=== PATIENT | male | born 1955 | race Caucasian/White ===

== ENCOUNTER 2021-07-10 06:05 | Emergency (ER) | payer OTHER ==
[2021-07-10] MEDS ORDERED: EPINEPHrine 1 MG/ML SDV IM ONE (06:14)
[2021-07-10] MEDS ORDERED: Dexamethasone 4 MG/ML SDV IVPUSH ONE (06:14)
--- NOTE | 2021-07-10 06:21 | EDM.PDOC ---
<Ricky Davis - Last Filed: 07/10/21 06:37> ED HPI GENERAL MEDICAL PROBLEM - General Chief Complaint: Allergic Reaction Stated Complaint: REACTION Time Seen by Provider: 07/10/21 06:14 Source of Information: Reports: Patient History Limitations: Reports: No Limitations - History of Present Illness INITIAL COMMENTS - FREE TEXT/NARRATIVE: Gilmar is a 65-year-old male presenting to the ED for evaluation of acute onset of swelling of the tongue and urticaria on the face, neck, chest, abdomen and back. Appears to be sparing the upper and lower extremities at this time. The patient has a muffled voice but is able to breathing and handle his secretions without difficulty at this time. He reports he had a similar episode with this about 5 years ago. The patient is on an ALICIA inhibitor, lisinopril which she has been on for a number of years. He is also on Viagra, Metformin, glipizide, and simvastatin. He is likely on the lisinopril for renal protection due to his diabetes. He takes 10 mg daily. In addition to type 2 diabetes, Gilmar also has a history of essential hypertension, hyperlipidemia, and an epidermoid cyst. The patient awoke with the symptoms this morning including the tongue thickness, hand itching, and rash on his face, neck and trunk. Upon arrival to the ED, he was brought back to stabilization room #9 for rapid assessment. Patient does report that he took diphenhydramine 50 mg by mouth at home this morning prior to arrival. - Related Data Allergies Allergy/AdvReac Type Severity Reaction Status Date / Time No Known Allergies Allergy Verified 12/10/13 08:15 Home Meds: Home Meds Aspirin [Adult Low Dose Aspirin EC] 81 mg PO DAILY 12/10/13 [History] Sildenafil [Viagra] 100 mg PO BEDTIME PRN 12/10/13 [History] glipiZIDE [Glipizide ER] 20 mg PO DAILY 12/10/13 [History] lisinopriL [Prinivil] 10 mg PO DAILY 12/10/13 [History] metFORMIN HCl [Metformin HCl] 1,000 mg PO BID 12/10/13 [History] Empagliflozin [Jardiance] 1 tab PO DAILY 07/10/21 [History] atorvaSTATin [Lipitor] 1 tab PO DAILY 08/15/21 [History] ED ROS ALLERGIC REACTION - Review of Systems Review Of Systems: See Below Constitutional: Reports: No Symptoms HEENT: Reports: Throat Swelling (Throat and tongue swelling, muffled voice) Respiratory: Reports: No Symptoms Cardiovascular: Reports: No Symptoms Endocrine: Reports: No Symptoms GI/Abdominal: Reports: No Symptoms : Reports: No Symptoms Musculoskeletal: Reports: No Symptoms Skin: Reports: Pruritis (Bilateral hands), Rash (Urticarial rash on the face, neck, chest, back, and abdomen.), Urticaria Neurological: Reports: No Symptoms Psychiatric: Reports: No Symptoms Hematologic/Lymphatic: Reports: No Symptoms Immunologic: Reports: No Symptoms ED EXAM GENERAL NO PERIP PULSE - Physical Exam Exam: See Below Exam Limited By: No Limitations General Appearance: Alert, Anxious, Mild Distress Eye Exam: Bilateral Eye: EOMI, PERRL Nose: Normal Inspection, Normal Mucosa Throat/Mouth: Other (Swelling of the tongue with muffled voice. There is good air exchange. There is no evidence for stridor. There is mild swelling in the retropharynx. Teeth and gums appear normal.) Head: Atraumatic, Normocephalic. No: Facial Swelling, Facial Tenderness Neck: Normal Inspection, Supple. No: Lymphadenopathy (R), Lymphadenopathy (L) Respiratory/Chest: No Respiratory Distress, Lungs Clear, Normal Breath Sounds. No: Decreased Breath Sounds, Wheezing, Stridor Cardiovascular: Normal Peripheral Pulses, Regular Rate, Rhythm, No Murmur GI/Abdominal: Normal Bowel Sounds, Soft, Non-Tender Extremities: Normal Inspection, Normal Range of Motion, No Pedal Edema, Normal Capillary Refill Neurological: Alert, Oriented, Normal Cognition, No Motor/Sensory Deficits Psychiatric: Normal Affect, Anxious (Mild) Skin Exam: Warm, Dry, Rash (Urticarial rash on the face involving the jaw, neck, chest and back, and abdomen. Most prominent is along the beltline of the abdomen. It appears to spare the extremities, however, the hands are quite itchy although not erythematous.) Course - Re-Assessments/Exams Free Text/Narrative Re-Assessment/Exam: 07/10/21 06:26 in the ER, because of the swelling of the tongue and retropharynx we proceeded with epinephrine 0.5 mg IM as well as dexamethasone 10 mg IV push. The patient is already taken diphenhydramine 50 mg p.o. We will observe him loosely for any rebound of swelling over the next hour or 2. Because of the tongue swelling, it raises the concern of this being an angioedema reaction secondary to bradykinin and not histamine which would put it squarely on the shoulders of the lisinopril. The patient had one other previous episode of this about 5 years ago but cannot recall what was done at that time. I will likely put him on a 4-day prednisone burst with 20 mg a day. I would also like him to follow-up with his primary care provider, Sara Sim in the [facility] early this week to discuss whether or not to continue the lisinopril which is likely being used not only for his benign essential hypertension but also renal protection from diabetic nephropathy. I do not think that immediately discontinuing the lisinopril is in the patient's best interest without talking with his primary care provider first. Certainly at this time, there is no impending airway compromise and I anticipate that the epinephrine and dexamethasone will significantly reverse the edema. Departure - Departure Disposition: Home, Self-Care 01 Clinical Impression: Benign essential hypertension Acute allergic reaction Qualifiers: Encounter type: initial encounter Qualified Code(s): T78.40XA - Allergy, unspecified, initial encounter Angioedema Qualifiers: Encounter type: initial encounter Qualified Code(s): T78.3XXA - Angioneurotic edema, initial encounter Type 2 diabetes mellitus Qualifiers: Diabetes mellitus predatory animal exterminator insulin use: without predatory animal exterminator use Diabetes mellitus complication status: without complication Qualified Code(s): E11.9 - Type 2 diabetes mellitus without complications Hyperlipidemia Qualifiers: Hyperlipidemia type: mixed hyperlipidemia Qualified Code(s): E78.2 - Mixed hyperlipidemia - Discharge Information Instructions: Angioedema, Anaphylactic Reaction, Adult Referrals: PCP,None [Primary Care Provider] - Forms: ED Department Discharge Care Plan Goals: I would like you to follow-up as soon as possible with your primary care provider, Dr. Sim to discuss whether or not to continue the lisinopril in the face of possible angioedema related to the medication. I do not think you should discontinue it prior to talking to Dr. Sim. If you have recurrence of the angioedema (swelling of the tongue) or urticaria (hives) please return immediately to the ER for reevaluation. My plan is to put you on a 4-day prednisone burst which will hopefully mitigate your immune system from causing either bradykinin release or histamine release resulting in the symptoms you are experiencing. This may raise your blood sugar while on the prednisone. You may take Benadryl as needed every 4 hours. - Problem List & Annotations (1) Acute allergic reaction SNOMED Code(s): 702262152 Code(s): T78.40XA - ALLERGY, UNSPECIFIED, INITIAL ENCOUNTER Status: Acute Priority: High Qualifiers: Encounter type: initial encounter Qualified Code(s): T78.40XA - Allergy, unspecified, initial encounter (2) Angioedema SNOMED Code(s): 05796433 Code(s): T78.3XXA - ANGIONEUROTIC EDEMA, INITIAL ENCOUNTER Status: Acute Priority: High Qualifiers: Encounter type: initial encounter Qualified Code(s): T78.3XXA - Angioneurotic edema, initial encounter (3) Benign essential hypertension SNOMED Code(s): 9660178 Code(s): I10 - ESSENTIAL (PRIMARY) HYPERTENSION Status: Chronic Priority: Medium (4) Hyperlipidemia SNOMED Code(s): 29592347 Code(s): E78.5 - HYPERLIPIDEMIA, UNSPECIFIED Status: Chronic Priority: Medium Qualifiers: Hyperlipidemia type: mixed hyperlipidemia Qualified Code(s): E78.2 - Mixed hyperlipidemia (5) Type 2 diabetes mellitus SNOMED Code(s): 72577342 Code(s): E11.9 - TYPE 2 DIABETES MELLITUS WITHOUT COMPLICATIONS Status: Chronic Priority: Medium Qualifiers: Diabetes mellitus correction insulin use: without predatory animal exterminator use Diabetes mellitus complication status: without complication Qualified Code(s): E11.9 - Type 2 diabetes mellitus without complications - Problem List Review Problem List Initiated/Reviewed/Updated: Yes <Yeys Perera - Last Filed: 07/11/21 07:54> Course - Vital Signs Last Recorded V/S: Last Vital Signs Temp 36.2 C 07/10/21 06:14 Pulse 86 07/10/21 06:14 Resp 18 07/10/21 06:14 BP 160/94 H 07/10/21 06:14 Pulse Ox 94 L 07/10/21 06:14 - Orders/Labs/Meds Meds: Medications Discontinued Medications Generic Name Dose Route Start Last Admin Trade Name Freq PRN Reason Stop Dose Admin Dexamethasone 10 mg 07/10/21 06:14 07/10/21 06:23 Dexamethasone 4 Mg/Ml Sdv IVPUSH 07/10/21 06:15 10 mg ONETIME ONE Administration Epinephrine HCl 0.5 mg 07/10/21 06:14 07/10/21 06:22 Epinephrine 1 Mg/Ml Sdv IM 07/10/21 06:15 0.5 mg ONETIME ONE Administration - Re-Assessments/Exams Free Text/Narrative Re-Assessment/Exam: 07/11/21 07:53 pt remained stable and the swelling in tongue continued to go down. Departure - Departure Time of Disposition: 07:46
== END 2021-07-10 08:03 | disposition home or self-care (01) ==
LOC: JP.ED 06:05
DX: T78.3XXA Angioneurotic edema, initial encounter (principal); E11.9 Type 2 diabetes mellitus without complications; E78.2 Mixed hyperlipidemia; Z79.82 Long term (current) use of aspirin; Z79.84 Long term (current) use of oral hypoglycemic drugs; Z79.899 Other long term (current) drug therapy; I10 Essential (primary) hypertension
CPT/HCPCS: 96372; 96374; 99283-25; J0171; J1100

== ENCOUNTER 2024-07-16 03:09 | Emergency (ER) | payer MEDICARE, OTHER ==
[2024-07-16] MEDS: EPINEPHrine 1 MG/ML SDV IM ONE (03:18)
[2024-07-16] MEDS: diphenhydrAMINE 50 MG/ML SDV IVPUSH ONE (03:19)
[2024-07-16] MEDS: methylPREDNISolone Sodium Succinate 125 MG/2 ML SDV IV ONE (03:21)
[2024-07-16] MEDS: Sodium Chloride 0.9% 10 ML Syringe FLUSH PRN (03:23)
== END 2024-07-16 07:30 | disposition home or self-care (01) ==
LOC: JP.ED 03:09
DX: T78.2XXA Anaphylactic shock, unspecified, initial encounter (principal); I10 Essential (primary) hypertension; E78.00 Pure hypercholesterolemia, unspecified; E11.9 Type 2 diabetes mellitus without complications; Z90.49 Acquired absence of other specified parts of digestive tract; Z79.82 Long term (current) use of aspirin; Z79.84 Long term (current) use of oral hypoglycemic drugs; Z79.899 Other long term (current) drug therapy; X58.XXXA Exposure to other specified factors, initial encounter
CPT/HCPCS: 96372; 96374; 96375; 99284; J0171; J1200; J2919; J3490